=== PATIENT | female | born 1995 ===

== ENCOUNTER 2020-01-05 13:36 | Emergency (ER) | payer OTHER ==
[~2020-01-05] VITALS: Ht 170.2 cm; Wt 113.6 kg
[2020-01-05 13:46] VITALS: BP 110/80; TEMP 97.5
[2020-01-05 14:11] VITALS: PULSE 85
[2020-01-05 14:36] LABS: HIV 1/2 Antibodies Non-Reactive; HIV-1p24 Antigen Non-Reactive
[2020-01-06 17:04] LABS: HEPATITIS B SURFACE ANTIGEN Negative (Negative); HEPATITIS C VIRUS ANTIBODY Negative (Negative)
== END 2020-01-05 14:06 | disposition home or self-care (01) ==
LOC: COL.ER 13:36
PROVIDERS: Physician Assistant
DX: S59.911A Unspecified injury of right forearm, initial encounter (principal); Z23 Encounter for immunization; W46.1XXA Contact with contaminated hypodermic needle, initial encounter; Y92.59 Other trade areas as the place of occurrence of the external cause